=== PATIENT | male | born 1985 | race Caucasian/White ===

== ENCOUNTER 2019-03-24 03:14 | Emergency (ER) | payer SELFPAY ==
[~2019-03-24] VITALS: Ht 182.9 cm; Wt 79.4 kg
[~2019-03-24 03:14] MED LIST: EXTRA STRENGTH500 MG PO; IBUP400 PO
== END 2019-03-24 07:00 | disposition home or self-care (01) ==
LOC: ER 03:14
DX: S61.212A Laceration without foreign body of right middle finger without damage to nail, initial encounter (principal); Z23 Encounter for immunization; Z87.891 Personal history of nicotine dependence; W26.0XXA Contact with knife, initial encounter
CPT/HCPCS: 90471; 90714; 99282-25